=== PATIENT | female | born 1975 | race African-American/Black ===

== ENCOUNTER → 2022-01-24 10:56 | Outpatient (CLI) | payer OTHER, SELFPAY ==
--- NOTE | 2022-01-24 11:01 | XR_ITS ---
FINAL REPORT CLINICAL HISTORY: fall FINDINGS: PELVIS SERIES Three views of the pelvis was obtained. There is no acute fracture or dislocation. 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 Soft tissues are unremarkable. IMPRESSION: No acute bony abnormality. Reviewed, Interpreted and Dictated by Zoë Li MD Transcribed by Randa Yarbrough Authenticated and [facility]
--- NOTE | 2022-01-24 11:01 | XR_ITS ---
FINAL REPORT CLINICAL HISTORY: fall FINDINGS: Internal and external rotation views of the right shoulder were obtained. There is no prior exam for comparison. There is no fracture or dislocation. There is degenerative joint disease at the acromioclavicular joint. Soft tissues are normal. IMPRESSION: No acute osseous abnormality of the right shoulder. Reviewed, Interpreted and Dictated by Zoë Li MD Transcribed by Randa Yarbrough Authenticated and [facility]
--- NOTE | 2022-01-24 11:01 | XR_ITS ---
FINAL REPORT CLINICAL HISTORY: fall FINDINGS: AP, lateral, and oblique views of the lumbar spine were obtained. There is no acute fracture or acute malalignment. Vertebral body height is preserved. There is multilevel degenerative disc disease. No acute paraspinal abnormality is identified. IMPRESSION: No acute osseous abnormalities lumbar spine. Reviewed, Interpreted and Dictated by Zoë Li MD Transcribed by Randa Yarbrough Authenticated and [facility]
== END ==
PROVIDERS: Visit Provider Emergency Medicine
DX: S49.91XA Unspecified injury of right shoulder and upper arm, initial encounter (principal); S33.5XXA Sprain of ligaments of lumbar spine, initial encounter; W19.XXXA Unspecified fall, initial encounter
CPT/HCPCS: 72110; 72190; 73030

== ENCOUNTER 2022-04-11 09:30 | Outpatient (RCR) | payer OTHER, SELFPAY ==
--- NOTE | 2022-01-31 13:40 | HMH.PTOPEV ---
PT Outpatient Evaluation Rehab PT Outpatient Evaluation Start: 01/31/22 13:27 Freq: Status: Active Protocol: Document 01/31/22 13:27 LYNNE (Rec: 01/31/22 13:39 LNYNE [id number]) Electronically Signed By Ricardo Zaidi, PT 01/31/22 13:27 Outpatient Therapy Subjective History Subjective History Pt reports work-related fall @ [employer] in , and second fall in . Pt reports pallet-eduardo 'broke loose and knocked me down', reports injury to low back and right shoulder. Pt reports self care /medication hasn't alleviated s/s to date, and now has constant chronic pain in right shoulder and midline LBP. Pt reports global right shoulder pain, w/referred pain into right UT mm, and localized LBP w/o radicular s/s. Chief Complaint Pain,Stiff,Weakness Symptom Type Ache,Sharp,Dull,Stabbing, Burning Symptoms Relieved By Rest/Positioning,Heat,Ice,OTC Meds,Prescription Meds Symptoms Aggravated By Bending/Stooping,Physical Activity,Lifting Prior Functional Limitations Reaching,Lifting,Housework, Sleeping,Standing,Walking, Bending/Stooping Current Functional Limitations Reaching,Lifting,Housework, Sleeping,Standing,Walking, Bending/Stooping Symptom Description Constant but Variable Level of pain today (0-10) 7 Pain scale - at its best (0-10) 5 Pain scale - at its worst (0-10) 10 Shoulder/Elbow Eval Shoulder Objective Measurements Palpation Tenderness tenderness shoulder exam standard right tenderness over the bicipital tendon right shoulder exam standard Shoulder Palpation Findings Tenderness,Trigger Point, Muscle Guarding Shoulder Palpation Overall Comment 3-4/4 global R SH and R UT mm Posture Shoulder Posture Sitting Position (L) Rounded,(R) Rounded Shoulder Posture Standing Position (L) Rounded,(R) Rounded Scapula Posture Sitting Position (L) Protracted,(R) Protracted Scapular Posture Standing Position (L) Protracted,(R) Protracted Shoulder ROM Right Shoulder ROM Limitations Soft Tissue Tightness,Pain Shoulder Abduction Active Range of 0-105 Motion (degrees) Shoulder Flexion Active Range of Motion 0-105 (degrees) Query Text:
--- NOTE | 2022-03-08 15:52 | HMH.RHREAS ---
Rehab Reassessment Rehab OP Re-assessment Start: 03/08/22 15:37 Freq: Status: Active Protocol: Document 03/08/22 15:44 JHOANARAJANIKHRIS (Rec: 03/08/22 15:52 LYNNE [id number]) E-signed By Ricardo Zaidi, PT Rehab Re-assessment Subjective Subjective Pt reports 7-8/10 right shoulder pain on VAS, and 4/10 LBP on VAS this pm, reports no significant changes in right shoulder since I eval, and 25% improvement in LBP and function since I eval Objective Objective Notes AROM: RIGHT SHOULDER FLX 0-130 , ABD 0-91 AROM: LUMBAR SPINE FLX 0-50, EXT 0-15, B SB 0-25 MMT: RIGHT SHOULDER FLX 4-/5, ABD 4-/5, ER 4-4-/5, IR 4/5 LITO. HIP FLX 5/5, LITO KNEE EXT 5/5, LITO. KNEE FLX 5/5, LITO. HIP ADD 5/5, LITO. HIP ABD 5/5, LITO. DF 5/5 TTP: RIGHT SHOULDER ANT. JT LINE/RTC 3/4, POST RTC /, UT MM /, LUMBAR PARA LITO. 1-2 Assessment Progress Assessment Slower Than Expected Assessment Notes RIGHT SHOULDER W/LIMITED IMPROVEMENT IN ROM, STRENGTH, AND TTP LUMBAR SPINE SLIGHT IMPROVEMENT IN ROM, TTP Patient goals met STG'S 09/09 LTG'S 08/14 Goals Not Met STG'S 02/09, LTG'S 05/14 Plan Plan Pt to continue w/skilled P.T. to make further improvements in strength, ROM, and TTP to allow for optimal function Frequency of Therapy 2-3x/wk Duration of therapy 4-6wks Time and Billing Re-Eval Time 14 Re-Eval Billing Units 1 PHYSICIAN CERTIFICATION: I certify the specified therapy services for Jack Mederos are required, authorized, and reviewed every 30 days.
--- NOTE | 2022-03-28 16:16 | HMH.PTOPEV ---
PT Outpatient Evaluation Rehab PT Outpatient Evaluation Start: 01/31/22 13:27 Freq: Status: Active Protocol: Document 01/31/22 13:27 LYNNE (Rec: 01/31/22 13:39 LYNNE [id number]) E-signed By Ricardo Zaidi, PT Outpatient Therapy Subjective History Subjective History Pt reports work-related fall @ [employer] in , and second fall in . Pt reports pallet-eduardo 'broke loose and knocked me down', reports injury to low back and right shoulder. Pt reports self care /medication hasn't alleviated s/s to date, and now has constant chronic pain in right shoulder and midline LBP. Pt reports global right shoulder pain, w/referred pain into right UT mm, and localized LBP w/o radicular s/s. Chief Complaint Pain,Stiff,Weakness Symptom Type Ache,Sharp,Dull,Stabbing, Burning Symptoms Relieved By Rest/Positioning,Heat,Ice,OTC Meds,Prescription Meds Symptoms Aggravated By Bending/Stooping,Physical Activity,Lifting Prior Functional Limitations Reaching,Lifting,Housework, Sleeping,Standing,Walking, Bending/Stooping Current Functional Limitations Reaching,Lifting,Housework, Sleeping,Standing,Walking, Bending/Stooping Symptom Description Constant but Variable Level of pain today (0-10) 7 Pain scale - at its best (0-10) 5 Pain scale - at its worst (0-10) 10 Shoulder/Elbow Eval Shoulder Objective Measurements Palpation Tenderness tenderness shoulder exam standard right tenderness over the bicipital tendon right shoulder exam standard Shoulder Palpation Findings Tenderness,Trigger Point, Muscle Guarding Shoulder Palpation Overall Comment 3-4/4 global R SH and R UT mm Posture Shoulder Posture Sitting Position (L) Rounded,(R) Rounded Shoulder Posture Standing Position (L) Rounded,(R) Rounded Scapula Posture Sitting Position (L) Protracted,(R) Protracted Scapular Posture Standing Position (L) Protracted,(R) Protracted Shoulder ROM Right Shoulder ROM Limitations Soft Tissue Tightness,Pain Shoulder Abduction Active Range of 0-105 Motion (degrees) Shoulder Flexion Active Range of Motion 0-105 (degrees) Query Text: Shoulder MMT
--- NOTE | 2022-04-11 10:07 | HMH.RHREAS ---
Rehab Reassessment Rehab OP Re-assessment Start: 03/08/22 15:37 Freq: Status: Active Protocol: Document 04/11/22 09:43 GIANAKHRIS (Rec: 04/11/22 10:05 LYNNE [id number]) E-signed By Ricardo Zaidi, PT Rehab Re-assessment Subjective Subjective Pt reports no significant progress related to right shoulder or low back pain and function. Pt reports still awaiting right shoulder surgical consult, and pain management referral for low back pain. Objective Objective Notes AROM: RIGHT SHOULDER FLX 0-125 , ABD 0-85 AROM: LUMBAR SPINE FLX 0-50, EXT 0-12, R SB 0-20, L SB 0-25 MMT: RIGHT SHOULDER FLX 4-/5, ABD 4-/5, ER 4-4-/5, IR 4/5 LITO. HIP FLX 5/5, LITO KNEE EXT 5/5, LITO. KNEE FLX 5/5, LITO. HIP ADD 5/5, LITO. HIP ABD 5/5, LITO. DF 5/5 TTP: RIGHT SHOULDER ANT. JT LINE/RTC 3/4, POST RTC 3/4, UT MM 3/, LUMBAR PARA LITO. 2/ Assessment Progress Assessment No Progress Assessment Notes PT W/NO SIGNIFICANT OBJECTIVE MEASUREMENT PROGRESSIONS SINCE LAST REASSESSMENT Patient goals met STG'S 09/09 LTG'S 08/14 Goals Not Met STG'S 02/09, LTG'S 05/14 Plan Plan Pt to hold w/skilled P.T. d/t lack of functional progress, and will recycle if ordered by referring provider following shoulder or low back consult(s ) Frequency of Therapy na Duration of therapy na Time and Billing Re-Eval Time 10 Re-Eval Billing Units 0 PHYSICIAN CERTIFICATION: I certify the specified therapy services for Jack Mederos are required, authorized, and reviewed every 30 days.
== END 2022-04-11 09:35 | disposition home or self-care (01) ==
LOC: PT 09:30
PROVIDERS: Visit Provider Emergency Medicine
DX: M54.50 Low back pain, unspecified (principal); M25.511 Pain in right shoulder; W19.XXXA Unspecified fall, initial encounter
CPT/HCPCS: 97010; 97012; 97014; 97110; 97163; 97164; 97530; G0283